=== PATIENT | female | born 1990 | race Caucasian/White ===

== ENCOUNTER 2016-12-17 21:56 | Emergency (ER) | payer SELFPAY ==
--- NOTE | 2016-12-18 00:29 | ER Document Report ---
ED Psych Disorder / Suicide - General Chief Complaint: Psych Problem Stated Complaint: POSSIBLE OVERDOSE Time seen by provider: 00:29 Mode of Arrival: Ambulatory Information source: Patient - HPI Patient complains to provider of: Overdose, Suicidal attempt Onset: This evening Onset was: Sudden Quality of pain: No pain Normal mood: No Associated symptoms: Depressed, Flat affect Similar symptoms previously: No Recently seen / treated by doctor: No Notes: Patient is a 26-year-old female who presents to the emergency room status post overdose, states she took 8 Benadryl and 8 Fioricet at approximately 8 PM, she admits that this was the side attempt stating that she is feeling overwhelmed about "a little bit of everything", she denies any previous suicide attempt, states that she was in family grief counseling back in 2007 but otherwise has not had any mental health treatment, is not currently on any medications, denies any symptoms at time of evaluation except for feeling tired - Related Data Allergies/Adverse Reactions: No Known Allergies Allergy (Unverified 12/17/16 22:03) Past Medical History - General Information source: Patient - Social History Smoking Status: Current Every Day Smoker Family History: Reviewed & Not Pertinent Patient has suicidal ideation: Yes Patient has homicidal ideation: No Renal/ Medical History: Denies: Hx Peritoneal Dialysis Review of Systems - Review of Systems Constitutional: No symptoms reported EENT: No symptoms reported Cardiovascular: No symptoms reported Respiratory: No symptoms reported Gastrointestinal: No symptoms reported Genitourinary: No symptoms reported Female Genitourinary: No symptoms reported Musculoskeletal: No symptoms reported Skin: No symptoms reported Hematologic/Lymphatic: No symptoms reported Neurological/Psychological: See HPI -: Yes All other systems reviewed and negative Physical Exam - Vital signs Vitals: Pulse Ox 99 12/18/16 01:14 Interpretation: Normal - General General appearance: Alert Notes: Somnolent - HEENT Head: Normocephalic, Atraumatic Eyes: Normal Pupils: PERRL - Respiratory Respiratory status: No respiratory distress Chest status: Nontender Breath sounds: Normal Chest palpation: Normal - Cardiovascular Rhythm: Regular Heart sounds: Normal auscultation Murmur: No - Abdominal Inspection: Normal Distension: No distension Bowel sounds: Normal Tenderness: Nontender Organomegaly: No organomegaly - Back Back: Normal, Nontender - Extremities General upper extremity: Normal inspection, Nontender, Normal color, Normal ROM , Normal temperature General lower extremity: Normal inspection, Nontender, Normal color, Normal ROM , Normal temperature, Normal weight bearing. No: La's sign - Neurological Neuro grossly intact: Yes Cognition: Normal Orientation: AAOx4 Ger Coma Scale Eye Opening: Spontaneous [place] Coma Scale Verbal: Oriented Ger Coma Scale Motor: Obeys Commands Ger Coma Scale Total: 15 Speech: Normal Motor strength normal: LUE, RUE, LLE, RLE Sensory: Normal - Psychological Associated symptoms: Depressed, Flat affect - Skin Skin Temperature: Warm Skin Moisture: Dry Skin Color: Normal Course - Re-evaluation Re-evalutation: 12/18/16 03:26 Patient presenting after intentional overdose, admitting this was a suicide attempt, therefore placed on IVC paper work pending evaluation by mental health for further recommendations, she is otherwise medically stable for discharge or transfer - Vital Signs Vital signs: Temp Pulse Resp BP Pulse Ox 97.7 F 55 L 16 118/71 97 12/18/16 01:53 12/18/16 01:53 12/18/16 01:53 12/18/16 01:53 12/18/16 01:53 - Laboratory Result Diagrams: 12/18/16 01:05 12/18/16 01:05 Laboratory results interpreted by me: 12/18/16 12/18/16 01:05 01:05 WBC 15.6 H MCH 26.7 L Absolute Neutrophils 10.0 H Salicylates < 1.0 L Acetaminophen < 10 L - EKG Interpretation by Vt EKG shows normal: Sinus rhythm Rate: Normal Rhythm: NSR Discharge - Discharge Clinical Impression: Suicide attempt Overdose Qualifiers: Encounter type: initial encounter Injury intent: intentional self-harm Qualified Code(s): T50.902A - Poisoning by unspecified drugs, medicaments and biological substances, intentional self-harm, initial encounter
[2016-12-18 01:18] LABS: ABSOLUTE BASOPHILS # (AUTO) 0.1 10^3/uL (0.0-0.2); ABSOLUTE EOSINOPHILS # (AUTO) 0.3 10^3/uL (0.0-0.6); ABSOLUTE LYMPHOCYTES (AUTO) 4.2 10^3/uL (0.5-4.7); BASOPHILS % (AUTO) 0.8 % (0-2); EOSINOPHILS % (AUTO) 1.8 % (0-6); HEMOGLOBIN 13.2 g/dL (12.0-15.5); HGB HCT DIFFERENCE -0.4; LYMPHOCYTES % (AUTO) 26.9 % (13-45); MEAN CORPUSCULAR HEMOGLOBIN 26.7 pg (27.0-33.4); MEAN CORPUSCULAR HGB CONC 33.1 g/dL (32.0-36.0); MEAN CORPUSCULAR VOLUME 81 fl (80-97); MONOCYTES % (AUTO) 6.1 % (3-13); RED BLOOD COUNT 4.96 10^6/uL (3.72-5.28); RED CELL DISTRIBUTION WIDTH 13.5 % (11.5-14.0); SEGMENTED NEUTROPHILS % (AUTO) 64.4 % (42-78); WHITE BLOOD COUNT 15.6 10^3/uL (4.0-10.5)
[2016-12-18 01:37] LABS: ALANINE AMINOTRANSFERASE 34 U/L (9-52); ALBUMIN 4.2 g/dL (3.5-5.0); ALKALINE PHOSPHATASE 75 U/L (38-126); ANION GAP 12 (5-19); ASPARTATE AMINO TRANSFERASE 28 U/L (14-36); BILIRUBIN,DIRECT 0.3 mg/dL (0.0-0.4); BILIRUBIN,TOTAL 0.5 mg/dL (0.2-1.3); BLOOD UREA NITROGEN 12 mg/dL (7-20); CALCIUM 9.7 mg/dL (8.4-10.2); CARBON DIOXIDE 25 mmol/L (22-30); CHLORIDE 107 mmol/L (98-107); CREATININE RESULT 0.76 mg/dL (0.52-1.25); GLUCOSE 87 mg/dL (75-110); POTASSIUM 3.8 mmol/L (3.6-5.0); SODIUM 144.2 mmol/L (137-145); TOTAL PROTEIN 7.2 g/dL (6.3-8.2)
[2016-12-18 01:46] LABS: ALCOHOL < 10 mg/dL (NONE DETECTED)
--- NOTE | 2016-12-18 08:09 | EKG REPORT ---
SEVERITY:- BORDERLINE ECG - SINUS RHYTHM BORDERLINE T ABNORMALITIES, DIFFUSE LEADS : Confirmed by: Mason Manning MD 18-Dec-2016 08:08:39
[2016-12-18 08:37] LABS: APPEARANCE,URINE CLOUDY; BILIRUBIN,URINE NEGATIVE (NEGATIVE); GLUCOSE, URINE NEGATIVE (NEGATIVE); KETONES,URINE NEGATIVE (NEGATIVE); LEUKOCYTE ESTERASE,URINE TRACE (NEGATIVE); NITRITE,URINE POSITIVE (NEGATIVE); PROTEIN,URINE NEGATIVE (NEGATIVE); URINE SPECIFIC GRAVITY 1.028; UROBILINOGEN,URINE NEGATIVE mg/dL (<2.0)
[2016-12-18 08:57] LABS: URINE BARBITURATES SCREEN UNCONFIRMED POSITIVE; URINE METHADONE SCREEN NEGATIVE; URINE OPIATES LOW NEGATIVE; URINE PHENCYCLIDINE SCREEN NEGATIVE
--- NOTE | 2016-12-18 10:29 | ER Document Report ---
Doctor's Note Notes: 12/18/16 10:28 Medical rounds: Chart reviewed and patient interviewed briefly. Patient denies somatic complaints. Vital signs are normal. Laboratory values are satisfactory. There is some positive nitrite and some WBCs on the urinalysis, but this is a concentrated specimen and patient denies any symptoms of UTI. On examination, she is alert, oriented, and cooperative. She is medically stable pending evaluation by psych.
--- NOTE | 2016-12-18 16:33 | ER Document Report ---
ED Psych Disorder / Suicide - General Mode of Arrival: Ambulatory Information source: Patient, Friend - SO bedisde - HPI Patient complains to provider of: Overdose, Suicidal ideation Onset: Just prior to arrival Suicide Risk Factors: Depressed, Lethal weapons in home - SO has locked all weapons as well as pills, Other mental health dx. - Trauma history Situational problems related to: Other - trauma history Normal mood: Yes - reports depressed Associated symptoms: Depressed, Tearful Similar symptoms previously: No Recently seen / treated by doctor: No <EVANGELISTA DAVIS - Last Filed: 12/18/16 16:15> <BRADY JACKSON - Last Filed: 12/18/16 16:43> - General Chief Complaint: Psych Problem Stated Complaint: POSSIBLE OVERDOSE - HPI Notes: Patient is a 26-year-old female who presented overnight via EMS due to an overdose. Patient this afternoon states she was not attempting suicide but at the same time would not have been upset if she had . Patient reports she was trying to go to sleep. Patient denies wanting to by suicide at this time. Patient reports an extensive and traumatic history with depressive episodes. Patient states she is 1 of 7 siblings and was (5 from a very young age due to both of her parents being drug addicts. She states she was 11 when her father and 16 when her mother . He reportedly of overdoses. Patient reports at this time she just feels overwhelmed by emotions. Discussed with patient at length that she has historically lived with negative emotions and by her own admission has not appropriately processed and/or dealt with them. Patient reports she and her siblings did engage in grief counseling following the of both of their parents; however, her grandmother terminated services when she felt they were "okay." Patient does endorse a remote history of self-injurious cutting but denies any recent episodes. Last known event was around the age of 19. 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 Patient reports over the past couple of weeks she has experienced anhedonia type symptoms and has not felt like going to work, or felt like engaging at home. Discussed with patient coping skills and the importance of outpatient follow-up. Patient reports counseling would be difficult for her, but she is willing to attempt. Patient's boyfriend is bedside and states when he went to the house earlier to let the dogs out, he secured all lethal weapons as well as medications in the home. He states they are all under padlock and he will supervise any medication use, to include OTC and RX. [place] reports he is in agreement to accompany the patient tomorrow to [facility] as a walk-in. [place] reports he is not concerned for her safety at this time, but is concerned for her emotional well-being and wants her to feel christiano and be happy. is alert and oriented. Mood is depressed per her admission, but she presents euthymic and smiles often but also cries at inappropriate times. Patient denies suicidal/homicidal ideations, intent, plan, means. Patient denies A/VH; delusions not noted. Thought processes were organized. Conversational speech was WNL for prosody. Intellectual abilities were estimated within average range. Attention and focus were fair. Insight, judgment, impulse control were poor to fair. Unspecified depressive disorder Patient is psychiatrically cleared and recommended for discharge to her boyfriend. Patient is recommended for rescind IVC and to follow-up as a walk in new patient at [facility] tomorrow morning. [place] has already secured medications in the home as well as lethal weapons. [facility] will not allow unsupervised access to medications and we'll and definitely restrict access to firearms. I consulted with Dr. Cervantes in regards to the care and management of this patient. She no longer meets criteria for involuntary commitment as she denies current suicidal ideations, has no prior suicide attempts, and is able to verbalize coping skills as well as reasons to live. (EVANGELISTA DAVIS) - Related Data Allergies/Adverse Reactions: No Known Allergies Allergy (Unverified 12/17/16 22:03) Home Medications: Current Home Medications No Home Medications 12/18/16 [History] Past Medical History - General Information source: Patient - Social History Smoking Status: Unknown if Ever Smoked Frequency of alcohol use: Rare Drug Abuse: None Family History: Reviewed & Not Pertinent Patient has suicidal ideation: Yes Patient has homicidal ideation: No Renal/ Medical History: Denies: Hx Peritoneal Dialysis <EVANGELISTA DAVIS - Last Filed: 12/18/16 16:15> Course - Laboratory Result Diagrams: 12/18/16 01:05 12/18/16 01:05 <EVANGELISTA DAVIS - Last Filed: 12/18/16 16:15> - Laboratory Result Diagrams: 12/18/16 01:05 12/18/16 01:05 <BRADY JACKSON - Last Filed: 12/18/16 16:43> - Vital Signs Vital signs: Temp Pulse Resp BP Pulse Ox 98.0 F 55 L 16 112/56 L 99 12/18/16 11:46 12/18/16 11:46 12/18/16 11:46 12/18/16 11:46 12/18/16 11:46 - Laboratory Laboratory results interpreted by me: 12/18/16 12/18/16 12/18/16 01:05 01:05 07:54 WBC 15.6 H MCH 26.7 L Absolute Neutrophils 10.0 H Urine Nitrite POSITIVE H Ur Leukocyte Esterase TRACE H Salicylates < 1.0 L Acetaminophen < 10 L Discharge <EVANGELISTA DAVIS - Last Filed: 12/18/16 16:15> <BRADY JACKSON - Last Filed: 12/18/16 16:43> - Discharge Clinical Impression: Suicide attempt Overdose Qualifiers: Encounter type: initial encounter Injury intent: intentional self-harm Qualified Code(s): T50.902A - Poisoning by unspecified drugs, medicaments and biological substances, intentional self-harm, initial encounter Condition: Good Disposition: HOME, SELF-CARE Additional Instructions: Depression Your evaluation reveals that you have mental depression. While symptoms may be vague, they often include disturbance of sleep, fatigue, loss of appetite , and general loss of interest in life. While depression may be a side effect of drugs, or a reaction to a major change in your life, many cases have no known cause. If depression is acute, and related to a major loss in your life, you can expect it to clear completely with time. If you have been depressed a long time , are prone to repeated bouts of depression or low mood, or have been thinking of suicide, get help. Depression can be treated with anti-depressant medication and counselling. Long-term depression will often take a few weeks to clear, even with appropriate medication. Follow-up care is important. Contact your physician, the hospital emergency center, crisis line, or your counsellor if you are losing control or having self-destructive thoughts. Suicidal Ideation Suicidal ideation is a common medical term for thoughts about suicide, which may be as detailed as a formulated plan, without the suicidal act itself. Although most people who undergo suicidal ideation do not commit suicide, some go on to make suicide attempts. The range of suicidal ideation varies greatly from fleeting to detailed planning, role playing, and unsuccessful attempts. Please follow-up with a provider of your choice as a walk in new patient tomorrow morning at 9 AM. You have been provided a list of resources to do so, to include phone numbers for mobile crisis. You have identified [facility]. Please return to the emergency department if your symptoms worsen. Forms: Return to Work Referrals: [facility] [Provider Group] - Follow up tomorrow
[2016-12-18 16:52] VITALS: BP 113/64
== END 2016-12-18 16:52 | disposition home or self-care (01) ==
LOC: ER 21:56
DX: T45.0X1A Poisoning by antiallergic and antiemetic drugs, accidental (unintentional), initial encounter (principal); T39.1X1A Poisoning by 4-Aminophenol derivatives, accidental (unintentional), initial encounter; F17.200 Nicotine dependence, unspecified, uncomplicated; F32.9 Major depressive disorder, single episode, unspecified
CPT/HCPCS: 36415; 80053; 80307; 81001; 84703; 85025; 93005; 93010; 99285